=== PATIENT | male | born 1965 | race African-American/Black ===

== ENCOUNTER 2023-12-22 04:15 | Day surgery (SDC) | payer OTHER ==
[2023-12-19 08:49] VITALS: BMI 28.1
[2023-12-22] MEDS ORDERED: MIDAZOLAM HCL 2 MG/2 ML SINGLE DOSE VIAL ONE (16:07)
[2023-12-22 17:23] VITALS: RESP 20; TEMP 97.1
[2023-12-22 19:11] VITALS: BP 130/84; PULSE 80
== END 2023-12-22 17:58 | disposition home or self-care (01) ==
LOC: JASU-SURG 04:15
PROVIDERS: ATTEND Urology
PROC: 0TF3XZZ Fragmentation in Right Kidney Pelvis, External Approach (ICD-10-PCS; principal; 2023-12-22 16:14)
DX: N20.0 Calculus of kidney (principal)